=== PATIENT | male | born 1940 | race Caucasian/White ===

== ENCOUNTER 2020-01-03 23:33 | Emergency (ER) | payer MEDICARE, BC ==
[2020-01-03] MEDS ORDERED: Acetaminophen/HYDROcodone 325-10 MG Tab PO ONE (23:34)
[2020-01-03] MEDS ORDERED: Metoclopramide 10 MG/2 ML SDV IVPUSH ONE (23:53)
--- NOTE | 2020-01-03 23:57 | EDM.PDOC ---
ED HPI GENERAL MEDICAL PROBLEM - General Chief Complaint: Abdominal Pain Stated Complaint: AMBULANCE Time Seen by Provider: 01/03/20 23:54 Source of Information: Reports: Patient History Limitations: Reports: No Limitations - History of Present Illness INITIAL COMMENTS - FREE TEXT/NARRATIVE: onset low abd pain after eating some pizza at 6pm, no V/D but nauseous then ate chips and flowers juice at 9pm and felt worse. has been having BM, denies dysU, denies prior h/o. sharp pain constant. Abdomen Pain Score (Numeric/FACES): 8 - Related Data Allergies Allergy/AdvReac Type Severity Reaction Status Date / Time wool Allergy Other Verified 01/03/20 23:37 Home Meds: Home Meds Aspirin [Adult Low Dose Aspirin EC] 81 mg PO DAILY 01/04/20 [History] Omeprazole 20 mg PO DAILY 01/04/20 [History] atenoloL [Atenolol] 50 mg PO DAILY 01/04/20 [History] gemfibroziL [Gemfibrozil] 600 mg PO BID 01/04/20 [History] lisinopriL [Lisinopril] 2.5 mg PO DAILY 01/04/20 [History] traMADol [Ultram] 50 mg PO ASDIRECTED PRN 01/04/20 [History] Past Medical History HEENT History: Reports: Impaired Vision Cardiovascular History: Reports: Hypertension Respiratory History: Reports: Other (See Below) Other Respiratory History: reports chronic sinus drainage Gastrointestinal History: Reports: Hiatal Hernia Genitourinary History: Reports: Other (See Below) Other Genitourinary History: Stage 3 Kidney Disease Endocrine/Metabolic History: Reports: Diabetes, Type II Social & Family History - Tobacco Use Smoking Status *Q: Unknown Ever Smoked - Caffeine Use Caffeine Use: Reports: None - Recreational Drug Use Recreational Drug Use: No ED ROS GENERAL - Review of Systems Review Of Systems: Comprehensive ROS is negative, except as noted in HPI. ED EXAM, GI/ABD - Physical Exam Exam: See Below Exam Limited By: No Limitations General Appearance: Alert, WD/WN, Mild Distress, Moderate Distress, Other. No: Active Emesis (discomfort) Ears: Hearing Grossly Normal Throat/Mouth: Normal Voice, No Airway Compromise Head: Atraumatic Respiratory/Chest: No Respiratory Distress Cardiovascular: Regular Rate, Rhythm GI/Abdominal Exam: Guarding, Tender, Other (low abd, BS hyper). No: Rigid, Rebound Neurological: Alert, Oriented, Normal Cognition, No Motor/Sensory Deficits Psychiatric: Tearful Skin Exam: Warm, Dry, Normal Color Lymphatic: No Adenopathy Course - Vital Signs Last Recorded V/S: Last Vital Signs Temp 35.9 C L 01/03/20 23:38 Pulse 76 01/03/20 23:38 Resp 20 01/03/20 23:38 BP 166/94 H 01/03/20 23:38 Pulse Ox 97 01/03/20 23:38 - Orders/Labs/Meds Labs: Laboratory Tests 01/03/20 01/03/20 01/03/20 Range/Units 23:55 23:55 23:55 WBC 14.1 H (5.0-10.0) 10^3/uL RBC 5.66 (4.6-6.2) 10^6/uL Hgb 16.3 (14.0-18.0) g/dL Hct 49.6 (40.0-54.0) % MCV 87.6 (80-100) fL MCH 28.8 (27.0-34.0) pg MCHC 32.9 L (33.0-35.0) g/dL Plt Count 190 (150-450) 10^3/uL Neut % (Auto) 82.3 H (42.2-75.2) % Lymph % (Auto) 12.1 L (20.5-50.1) % [place] % (Auto) 4.7 (2-8) % Eos % (Auto) 0.8 L (1.0-3.0) % Baso % (Auto) 0.1 (0.0-1.0) % Sodium 143 (136-145) mmol/L Potassium 4.3 (3.5-5.1) mmol/L Chloride 106 (98-107) mmol/L Carbon Dioxide 23 (21-32) mmol/L Anion Gap 18.3 H (7-13) mEq/L BUN 28 H (7-18) mg/dL Creatinine 1.90 H (0.70-1.30) mg/dL Est Cr Clr Drug Dosing 30.44 mL/min Estimated GFR (MDRD) 35 BUN/Creatinine Ratio 14.7 (No establ ref range) Glucose 154 H (74-99) mg/dL Lactic Acid 1.5 (0.4-2.0) mmol/L Calcium 9.5 (8.5-10.1) mg/dL Total Bilirubin 0.3 (0.2-1.0) mg/dL AST 20 (15-37) U/L ALT 29 (16-63) U/L Alkaline Phosphatase 96 (46-116) U/L Total Protein 7.9 (6.4-8.2) g/dL Albumin 4.4 (3.4-5.0) g/dL Globulin 3.5 Albumin/Globulin Ratio 1.3 Amylase 79 (25-115) U/L Lipase 263 (73-393) U/L Meds: Medications Discontinued Medications Generic Name Dose Route Start Last Admin Trade Name Becca PRN Reason Stop Dose Admin Fentanyl 50 mcg 01/04/20 00:34 01/04/20 00:57 Sublimaze IVPUSH 01/04/20 00:35 50 mcg ONETIME ONE Administration Sodium Chloride 1,000 mls @ 999 mls/hr 01/04/20 01:40 01/04/20 01:54 Normal Saline IV 01/04/20 02:40 999 mls/hr .BOLUS ONE Administration Ketorolac Tromethamine 30 mg 01/04/20 01:40 01/04/20 01:55 Toradol IVPUSH 01/04/20 01:41 30 mg ONETIME ONE Administration Metoclopramide HCl 10 mg 01/03/20 23:53 01/04/20 00:02 Reglan IVPUSH 01/03/20 23:54 10 mg ONETIME ONE Administration Tamsulosin HCl 0.4 mg 01/04/20 02:27 Flomax PO 01/04/20 02:28 ONETIME ONE - Re-Assessments/Exams Free Text/Narrative Re-Assessment/Exam: 01/04/20 02:55 results discussed with pt who is pain free presently. Departure - Departure Time of Disposition: 02:56 Disposition: Home, Self-Care 01 Condition: Good Clinical Impression: Renal colic on left side, Kidney stone on left side Cholelithiases Qualifiers: Cholelithiasis location: gallbladder Cholecystitis presence: without cholecystitis Biliary obstruction: without biliary obstruction Qualified Code(s): K80.20 - Calculus of gallbladder without cholecystitis without obstruction - Discharge Information Instructions: Kidney Stones, [id number] Referrals: Umair Santiago MD [Primary Care Provider] - Forms: ED Department Discharge Additional Instructions: 1) drink lots of liquids 2) recheck if problem returns rx given; vicodin 5/325mg tid prn x 12 Sepsis Event Note (ED) - Evaluation Sepsis Screening Result: No Definite Risk - Focused Exam Vital Signs: Vital Signs Temp Pulse Resp BP Pulse Ox 01/03/20 23:38 35.9 C L 76 20 166/94 H 97
[2020-01-04 00:22] LABS: ANION GAP 18.3 mEq/L (7-13)
[2020-01-04] MEDS ORDERED: fentaNYL 100 MCG/2 ML SDV IVPUSH ONE (00:34)
--- NOTE | 2020-01-04 01:27 | CR ---
PROCEDURE INFORMATION: Exam: XR Chest, 1 View Exam date and time: 01/04/2020 1:12 AM Age: 79 years old Clinical indication: Chest pain TECHNIQUE: Imaging protocol: XR of the chest Views: 1 view. COMPARISON: No relevant prior studies available. FINDINGS: Lungs: Unremarkable. No consolidation. Pleural space: Unremarkable. No pleural effusion. No pneumothorax. Heart/Mediastinum: Unremarkable. No cardiomegaly. Bones/joints: Unremarkable. IMPRESSION: No acute findings.
--- NOTE | 2020-01-04 01:33 | CT ---
PROCEDURE INFORMATION: Exam: CT Abdomen And Pelvis Without Contrast Exam date and time: 01/04/2020 1:08 AM Age: 79 years old Clinical indication: Abdominal pain; Additional info: Low abd pain wbc 14,300 TECHNIQUE: Imaging protocol: Computed tomography of the abdomen and pelvis without contrast. Radiation optimization: All CT scans at this facility use at least one of these dose optimization techniques: automated exposure control; mA and/or kV adjustment per patient size (includes targeted exams where dose is matched to clinical indication); or iterative reconstruction. COMPARISON: No relevant prior studies available. FINDINGS: Liver: Diffuse fatty infiltration of the liver. Gallbladder and bile ducts: Gallstones in the gallbladder lumen without acute cholecystitis. Pancreas: Normal. No ductal dilation. Spleen: Normal. No splenomegaly. Adrenals: Normal. No mass. Kidneys and ureters: 3 mm x 3 mm stone at the left ureterovesicular junction. It causes moderate left hydronephrosis and left perinephric stranding, as well as stranding adjacent to the left ureter. Simple cyst arising from the lower pole of the right kidney measures 1.8 x 1.5 cm. Stomach and bowel: Unremarkable. No obstruction. No mucosal thickening. Appendix: No evidence of appendicitis. Intraperitoneal space: Unremarkable. No free air. No significant fluid collection. Vasculature: Unremarkable. No abdominal aortic aneurysm. Lymph nodes: Unremarkable. No enlarged lymph nodes. Bladder: Unremarkable as visualized. Reproductive: Prostate enlargement. Bones/joints: Multilevel changes of degenerative disc disease in the lumbar spine. No central canal stenosis. Soft tissues: Unremarkable. IMPRESSION: 1. 3 mm stone in the distal left ureter causing moderate left hydronephrosis and perinephric/periureteral stranding. 2. Gallstones in the gallbladder lumen without acute cholecystitis. COMMENTS: Consistent with the [employer]'s Incidental Findings Committee white paper (J Am Perla Radiol 2018): Any incidental renal lesion less than 1.0 cm or classified as too small to characterize, or any incidental cystic renal lesion characterized as simple-appearing, is likely benign. No follow-up imaging is recommended for these lesions per consensus recommendations based on imaging criteria.
[2020-01-04] MEDS ORDERED: Sodium Chloride 0.9% 1,000 ML IV ONE (01:40)
[2020-01-04] MEDS ORDERED: Ketorolac 30 MG/ML SDV IVPUSH ONE (01:40)
[2020-01-04] MEDS ORDERED: Ketorolac 30 MG/ML SDV ONE (01:51)
[2020-01-04] MEDS ORDERED: Tamsulosin 0.4 MG Cap.ER PO ONE (02:27)
[2020-01-04] MEDS ORDERED: Acetaminophen/HYDROcodone 325-10 MG Tab ONE (02:56)
== END 2020-01-04 03:04 | disposition home or self-care (01) ==
LOC: DL.ED 23:33
DX: K80.20 Calculus of gallbladder without cholecystitis without obstruction (principal); N13.2 Hydronephrosis with renal and ureteral calculous obstruction; I12.9 Hypertensive chronic kidney disease with stage 1 through stage 4 chronic kidney disease, or unspecified chronic kidney disease; N18.3 Chronic kidney disease, stage 3 (moderate); E11.22 Type 2 diabetes mellitus with diabetic chronic kidney disease; Z91.048 Other nonmedicinal substance allergy status; Z79.82 Long term (current) use of aspirin; Z79.899 Other long term (current) drug therapy
CPT/HCPCS: 36415; 71045; 74176; 80053; 82150; 83605; 83690; 85025; 96361; 96374; 96375; 99284; J1885; J2765; J3010; J7030; A9270-GY

== ENCOUNTER 2020-01-05 19:46 | Emergency (ER) | payer MEDICARE, BC ==
[2020-01-05] MEDS ORDERED: Ketorolac 30 MG/ML SDV IVPUSH ONE (19:51)
[2020-01-05] MEDS ORDERED: Ondansetron 4 MG/2 ML SDV IVPUSH ONE (19:51)
[2020-01-05] MEDS ORDERED: Sodium Chloride 0.9% 1,000 ML IV ONE (19:51)
--- NOTE | 2020-01-05 19:59 | EDM.PDOC ---
ED HPI GENERAL MEDICAL PROBLEM - General Stated Complaint: STOMACH PAIN,KINDEY STONE, CAN'T EAT OR SLEEP Time Seen by Provider: 01/05/20 19:56 Source of Information: Reports: Patient History Limitations: Reports: No Limitations - History of Present Illness INITIAL COMMENTS - FREE TEXT/NARRATIVE: was here 2 days ago for same, got better and d/c with Rx, was ok at first but then got worse and Rx not heping called PMD and got tramadol which didn't help at all. so came here Left Flank Pain Score (Numeric/FACES): 8 - Related Data Allergies Allergy/AdvReac Type Severity Reaction Status Date / Time wool Allergy Other Verified 01/05/20 20:17 Home Meds: Home Meds Aspirin [Adult Low Dose Aspirin EC] 81 mg PO DAILY 01/04/20 [History] Omeprazole 20 mg PO DAILY 01/04/20 [History] atenoloL [Atenolol] 50 mg PO DAILY 01/04/20 [History] gemfibroziL [Gemfibrozil] 600 mg PO BID 01/04/20 [History] lisinopriL [Lisinopril] 2.5 mg PO DAILY 01/04/20 [History] traMADol [Ultram] 50 mg PO ASDIRECTED PRN 01/04/20 [History] Past Medical History HEENT History: Reports: Impaired Vision Cardiovascular History: Reports: Hypertension Respiratory History: Reports: Other (See Below) Other Respiratory History: reports chronic sinus drainage Gastrointestinal History: Reports: Hiatal Hernia Genitourinary History: Reports: Other (See Below) Other Genitourinary History: Stage 3 Kidney Disease Endocrine/Metabolic History: Reports: Diabetes, Type II Social & Family History - Caffeine Use Caffeine Use: Reports: None ED ROS GENERAL - Review of Systems Review Of Systems: Comprehensive ROS is negative, except as noted in HPI. ED EXAM, RENAL/ - Physical Exam Exam: See Below Exam Limited By: No Limitations General Appearance: Alert, WD/WN, Mild Distress, Moderate Distress, Other ([place]). No: Active Emesis Ears: Hearing Grossly Normal Throat/Mouth: Normal Voice, No Airway Compromise Head: Atraumatic Neck: Non-Tender, Full Range of Motion Respiratory/Chest: No Respiratory Distress Cardiovascular: Regular Rate, Rhythm GI/Abdominal: Soft, Tender, Other (suprapub discomfort). No: Distended, Guarding, Rigid, Rebound Neurological: Alert, Oriented, Normal Cognition, Normal Gait, No Motor/Sensory Deficits Psychiatric: Flat Affect, Tearful Skin Exam: Warm, Dry, Normal Color Lymphatic: No Adenopathy Course - Vital Signs Last Recorded V/S: Last Vital Signs Temp 35.5 C L 01/05/20 20:14 Pulse 84 01/05/20 20:14 Resp 12 01/05/20 20:14 BP 175/82 H 01/05/20 20:14 Pulse Ox 95 01/05/20 20:14 - Orders/Labs/Meds Labs: Laboratory Tests 01/05/20 01/05/20 01/05/20 Range/Units 20:00 20:00 20:00 WBC 17.4 H (5.0-10.0) 10^3/uL RBC 5.29 (4.6-6.2) 10^6/uL Hgb 15.7 (14.0-18.0) g/dL Hct 46.8 (40.0-54.0) % MCV 88.5 (80-100) fL MCH 29.7 (27.0-34.0) pg MCHC 33.5 (33.0-35.0) g/dL Plt Count 176 (150-450) 10^3/uL Neut % (Auto) 82.7 H (42.2-75.2) % Lymph % (Auto) 7.8 L (20.5-50.1) % [place] % (Auto) 9.2 H (2-8) % Eos % (Auto) 0.2 L (1.0-3.0) % Baso % (Auto) 0.1 (0.0-1.0) % Sodium 137 (136-145) mmol/L Potassium 4.7 (3.5-5.1) mmol/L Chloride 103 (98-107) mmol/L Carbon Dioxide 22 (21-32) mmol/L Anion Gap 16.7 H (7-13) mEq/L BUN 33 H (7-18) mg/dL Creatinine 2.44 H (0.70-1.30) mg/dL Est Cr Clr Drug Dosing 23.70 mL/min Estimated GFR (MDRD) 26 BUN/Creatinine Ratio 13.5 (No establ ref range) Glucose 122 H (74-99) mg/dL Lactic Acid 0.6 (0.4-2.0) mmol/L Calcium 8.6 (8.5-10.1) mg/dL Total Bilirubin 0.8 (0.2-1.0) mg/dL AST 19 (15-37) U/L ALT 23 (16-63) U/L Alkaline Phosphatase 84 (46-116) U/L Total Protein 7.6 (6.4-8.2) g/dL Albumin 3.8 (3.4-5.0) g/dL Globulin 3.8 Albumin/Globulin Ratio 1.0 Amylase (25-115) U/L Lipase (73-393) U/L Urine Color (YELLOW) Urine Appearance (CLEAR) Urine pH (5.0-9.0) Ur Specific [place] (1.005-1.030) Urine Protein (NEGATIVE) Urine Glucose (UA) (NEGATIVE) Urine Ketones (NEGATIVE) Urine Occult Blood (NEGATIVE) Urine Nitrite (NEGATIVE) Urine Bilirubin (NEGATIVE) Urine Urobilinogen (0.2-1.0) mg/dL Ur Leukocyte Esterase (NEGATIVE) Urine RBC /HPF Urine WBC (0-5/HPF) /HPF Ur Epithelial Cells (NOT SEEN) /HPF Urine Bacteria (0-FEW/HPF) /HPF 01/05/20 01/05/20 Range/Units 20:00 20:45 WBC (5.0-10.0) 10^3/uL RBC (4.6-6.2) 10^6/uL Hgb (14.0-18.0) g/dL Hct (40.0-54.0) % MCV (80-100) fL MCH (27.0-34.0) pg MCHC (33.0-35.0) g/dL Plt Count (150-450) 10^3/uL Neut % (Auto) (42.2-75.2) % Lymph % (Auto) (20.5-50.1) % [place] % (Auto) (2-8) % Eos % (Auto) (1.0-3.0) % Baso % (Auto) (0.0-1.0) % Sodium (136-145) mmol/L Potassium (3.5-5.1) mmol/L Chloride (98-107) mmol/L Carbon Dioxide (21-32) mmol/L Anion Gap (7-13) mEq/L BUN (7-18) mg/dL Creatinine (0.70-1.30) mg/dL Est Cr Clr Drug Dosing mL/min Estimated GFR (MDRD) BUN/Creatinine Ratio (No establ ref range) Glucose (74-99) mg/dL Lactic Acid (0.4-2.0) mmol/L Calcium (8.5-10.1) mg/dL Total Bilirubin (0.2-1.0) mg/dL AST (15-37) U/L ALT (16-63) U/L Alkaline Phosphatase (46-116) U/L Total Protein (6.4-8.2) g/dL Albumin (3.4-5.0) g/dL Globulin Albumin/Globulin Ratio Amylase 46 (25-115) U/L Lipase 145 (73-393) U/L Urine Color Yellow (YELLOW) Urine Appearance Clear (CLEAR) Urine pH 6.0 (5.0-9.0) Ur Specific [place] 1.025 (1.005-1.030) Urine Protein 30 H (NEGATIVE) Urine Glucose (UA) Negative (NEGATIVE) Urine Ketones Negative (NEGATIVE) Urine Occult Blood Trace-intact H (NEGATIVE) Urine Nitrite Negative (NEGATIVE) Urine Bilirubin Negative (NEGATIVE) Urine Urobilinogen 0.2 (0.2-1.0) mg/dL Ur Leukocyte Esterase Negative (NEGATIVE) Urine RBC 0-5 /HPF Urine WBC 0-5 (0-5/HPF) /HPF Ur Epithelial Cells Rare (NOT SEEN) /HPF Urine Bacteria Rare (0-FEW/HPF) /HPF Meds: Medications Discontinued Medications Generic Name Dose Route Start Last Admin Trade Name Freq PRN Reason Stop Dose Admin Sodium Chloride 1,000 mls @ 999 mls/hr 01/05/20 19:51 01/05/20 20:07 Normal Saline IV 01/05/20 20:51 999 mls/hr .BOLUS ONE Administration Ketorolac Tromethamine 30 mg 01/05/20 19:51 01/05/20 20:06 Toradol IVPUSH 01/05/20 19:52 30 mg ONETIME ONE Administration Ondansetron HCl 4 mg 01/05/20 19:51 01/05/20 20:06 Zofran IVPUSH 08/21/20 19:52 4 mg ONETIME ONE Administration - Re-Assessments/Exams Free Text/Narrative Re-Assessment/Exam: 01/05/20 21:[address] Perez @ who kindly accepted pt. discussed with [facility] due to worsening RF refer to [facility] Neph refer to Dr Daly Urol request hospitalist admit myrna fu in AM Departure - Departure Time of Disposition: 21:54 Disposition: DC/Tfer to [facility] 02 Condition: Good Clinical Impression: Kidney stone on left side, Hydronephrosis due to obstruction of ureter Renal failure Qualifiers: Renal failure chronicity: acute on chronic Acute renal failure type: unspecified Chronic kidney disease stage: stage 3 (moderate) Qualified Code(s): N17.9 - Acute kidney failure, unspecified; N18.3 - Chronic kidney disease, stage 3 (moderate) - Discharge Information Forms: Interfacility Transfer [facility] Sepsis Event Note (ED) - Focused Exam Vital Signs: Vital Signs Temp Pulse Resp BP Pulse Ox 01/05/20 20:14 35.5 C L 84 12 175/82 H 95
[2020-01-05 20:24] LABS: ANION GAP 16.7 mEq/L (7-13)
== END 2020-01-05 22:47 ==
LOC: DL.ED 19:46
DX: N13.1 Hydronephrosis with ureteral stricture, not elsewhere classified (principal); N17.9 Acute kidney failure, unspecified; I12.9 Hypertensive chronic kidney disease with stage 1 through stage 4 chronic kidney disease, or unspecified chronic kidney disease; E11.22 Type 2 diabetes mellitus with diabetic chronic kidney disease; N18.3 Chronic kidney disease, stage 3 (moderate); Z79.82 Long term (current) use of aspirin; Z79.899 Other long term (current) drug therapy
CPT/HCPCS: 36415; 80053; 81001; 82150; 83605; 83690; 85025; 96361; 96374; 96375; 99285; J1885; J2405; J7030

== ENCOUNTER 2020-01-14 20:01 | Emergency (ER) | payer MEDICARE, BC ==
--- NOTE | 2020-01-14 20:31 | EDM.PDOC ---
ED HPI GENERAL MEDICAL PROBLEM - General Chief Complaint: Genitourinary Problem Stated Complaint: UTI, PAINFUL KIDNEY AND BLADDER PER PT Time Seen by Provider: 01/14/20 20:29 Source of Information: Reports: Patient History Limitations: Reports: No Limitations - History of Present Illness INITIAL COMMENTS - FREE TEXT/NARRATIVE: onset left flank burning sensation today. had uro stent removed few days ago for K-stones. been fine till now. 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 Left Flank Pain Score (Numeric/FACES): 7 - Related Data Allergies Allergy/AdvReac Type Severity Reaction Status Date / Time wool Allergy Other Verified 01/14/20 20:21 Home Meds: Home Meds Aspirin [Adult Low Dose Aspirin EC] 81 mg PO DAILY 01/04/20 [History] Omeprazole 20 mg PO DAILY 01/04/20 [History] atenoloL [Atenolol] 50 mg PO DAILY 01/04/20 [History] gemfibroziL [Gemfibrozil] 600 mg PO BID 01/04/20 [History] lisinopriL [Lisinopril] 2.5 mg PO DAILY 01/04/20 [History] traMADol [Ultram] 50 mg PO ASDIRECTED PRN 01/04/20 [History] Past Medical History HEENT History: Reports: Impaired Vision Cardiovascular History: Reports: Hypertension Respiratory History: Reports: Other (See Below) Other Respiratory History: reports chronic sinus drainage Gastrointestinal History: Reports: Hiatal Hernia Genitourinary History: Reports: Renal Calculus, Other (See Below) Other Genitourinary History: Stage 3 Kidney Disease. post removal of stent Endocrine/Metabolic History: Reports: Diabetes, Type II - Past Surgical History Male Surgical History: Reports: Kidney Stone Extraction Social & Family History - Tobacco Use Smoking Status *Q: Never Smoker Second Hand Smoke Exposure: No - Caffeine Use Caffeine Use: Reports: Tea - Recreational Drug Use Recreational Drug Use: No ED ROS GENERAL - Review of Systems Review Of Systems: Comprehensive ROS is negative, except as noted in HPI. ED EXAM, RENAL/ - Physical Exam Exam: See Below Exam Limited By: No Limitations General Appearance: Alert, WD/WN, Mild Distress, Other (discomfort). No: Active Emesis Ears: Hearing Grossly Normal Throat/Mouth: Normal Voice, No Airway Compromise Head: Atraumatic Neck: Non-Tender, Full Range of Motion Respiratory/Chest: No Respiratory Distress Cardiovascular: Regular Rate, Rhythm GI/Abdominal: Soft, Non-Tender Back Exam: CVA Tenderness (L) Neurological: Alert, Oriented, Normal Cognition, Normal Gait, No Motor/Sensory Deficits Psychiatric: Normal Affect, Normal Mood Skin Exam: Warm, Dry, Normal Color Lymphatic: No Adenopathy Course - Vital Signs Last Recorded V/S: Last Vital Signs Temp 36.2 C 01/14/20 20:12 Pulse 73 01/14/20 20:12 Resp 19 01/14/20 20:12 BP 167/98 H 01/14/20 20:12 Pulse Ox 98 01/14/20 20:12 - Orders/Labs/Meds Orders: Active Orders 24 hr Category Date Time Status CULTURE BLOOD [BC] Stat Lab 01/14/20 20:38 Results Labs: Laboratory Tests 01/14/20 01/14/20 01/14/20 Range/Units 20:12 20:38 20:38 WBC 11.5 H (5.0-10.0) 10^3/uL RBC 5.23 (4.6-6.2) 10^6/uL Hgb 15.4 (14.0-18.0) g/dL Hct 45.7 (40.0-54.0) % MCV 87.4 (80-100) fL MCH 29.4 (27.0-34.0) pg MCHC 33.7 (33.0-35.0) g/dL Plt Count 297 D (150-450) 10^3/uL Neut % (Auto) 80.4 H (42.2-75.2) % Lymph % (Auto) 10.2 L (20.5-50.1) % [place] % (Auto) 7.1 (2-8) % Eos % (Auto) 2.1 (1.0-3.0) % Baso % (Auto) 0.2 (0.0-1.0) % Sodium 137 (136-145) mmol/L Potassium 4.1 (3.5-5.1) mmol/L Chloride 102 (98-107) mmol/L Carbon Dioxide 23 (21-32) mmol/L Anion Gap 16.1 H (7-13) mEq/L BUN 22 H (7-18) mg/dL Creatinine 2.03 H (0.70-1.30) mg/dL Est Cr Clr Drug Dosing 28.49 mL/min Estimated GFR (MDRD) 32 BUN/Creatinine Ratio 10.8 (No establ ref range) Glucose 172 H (74-99) mg/dL Lactic Acid (0.4-2.0) mmol/L Calcium 9.4 (8.5-10.1) mg/dL Total Bilirubin 0.4 (0.2-1.0) mg/dL AST 15 (15-37) U/L ALT 21 (16-63) U/L Alkaline Phosphatase 115 (46-116) U/L Total Protein 8.0 (6.4-8.2) g/dL Albumin 3.7 (3.4-5.0) g/dL Globulin 4.3 Albumin/Globulin Ratio 0.9 Urine Color Yellow (YELLOW) Urine Appearance Slightly cloudy (CLEAR) Urine pH 5.5 (5.0-9.0) Ur Specific [place] >= 1.030 (1.005-1.030) Urine Protein >=300 H (NEGATIVE) Urine Glucose (UA) Negative (NEGATIVE) Urine Ketones Negative (NEGATIVE) Urine Occult Blood Moderate H (NEGATIVE) Urine Nitrite Negative (NEGATIVE) Urine Bilirubin Negative (NEGATIVE) Urine Urobilinogen 0.2 (0.2-1.0) mg/dL Ur Leukocyte Esterase Negative (NEGATIVE) Urine RBC 50-75 H /HPF Urine WBC 5-10 H (0-5/HPF) /HPF Ur Epithelial Cells Few (NOT SEEN) /HPF Amorphous Sediment Rare (NOT SEEN) /HPF Urine Bacteria Few (0-FEW/HPF) /HPF Fine Granular Casts Rare H (NOT SEEN) /LPF Urine Mucus Few H (NOT SEEN) /LPF 08/30/20 Range/Units 20:38 WBC (5.0-10.0) 10^3/uL RBC (4.6-6.2) 10^6/uL Hgb (14.0-18.0) g/dL Hct (40.0-54.0) % MCV (80-100) fL MCH (27.0-34.0) pg MCHC (33.0-35.0) g/dL Plt Count (150-450) 10^3/uL Neut % (Auto) (42.2-75.2) % Lymph % (Auto) (20.5-50.1) % [place] % (Auto) (2-8) % Eos % (Auto) (1.0-3.0) % Baso % (Auto) (0.0-1.0) % Sodium (136-145) mmol/L Potassium (3.5-5.1) mmol/L Chloride (98-107) mmol/L Carbon Dioxide (21-32) mmol/L Anion Gap (7-13) mEq/L BUN (7-18) mg/dL Creatinine (0.70-1.30) mg/dL Est Cr Clr Drug Dosing mL/min Estimated GFR (MDRD) BUN/Creatinine Ratio (No establ ref range) Glucose (74-99) mg/dL Lactic Acid 0.8 (0.4-2.0) mmol/L Calcium (8.5-10.1) mg/dL Total Bilirubin (0.2-1.0) mg/dL AST (15-37) U/L ALT (16-63) U/L Alkaline Phosphatase (46-116) U/L Total Protein (6.4-8.2) g/dL Albumin (3.4-5.0) g/dL Globulin Albumin/Globulin Ratio Urine Color (YELLOW) Urine Appearance (CLEAR) Urine pH (5.0-9.0) Ur Specific [place] (1.005-1.030) Urine Protein (NEGATIVE) Urine Glucose (UA) (NEGATIVE) Urine Ketones (NEGATIVE) Urine Occult Blood (NEGATIVE) Urine Nitrite (NEGATIVE) Urine Bilirubin (NEGATIVE) Urine Urobilinogen (0.2-1.0) mg/dL Ur Leukocyte Esterase (NEGATIVE) Urine RBC /HPF Urine WBC (0-5/HPF) /HPF Ur Epithelial Cells (NOT SEEN) /HPF Amorphous Sediment (NOT SEEN) /HPF Urine Bacteria (0-FEW/HPF) /HPF Fine Granular Casts (NOT SEEN) /LPF Urine Mucus (NOT SEEN) /LPF Meds: Medications Discontinued Medications Generic Name Dose Route Start Last Admin Trade Name Freq PRN Reason Stop Dose Admin Phenazopyridine HCl 95 mg 01/14/20 22:30 Urinary Pain Relief PO 01/14/20 22:31 ONETIME ONE - Re-Assessments/Exams Free Text/Narrative Re-Assessment/Exam: 01/14/20 21:31 results discussed with pt and rescan for stones. 01/14/20 22:32 results discussed with pt who states left flank pain almost gone but urination still [place] abit. Departure - Departure Time of Disposition: 22:32 Disposition: Home, Self-Care 01 Condition: Good Clinical Impression: Urethritis - Discharge Information Forms: ED Department Discharge Additional Instructions: 1) drink lots of liquids 2) follow up at clinic rx given; pyridium 100mg tid prn x 12 Sepsis Event Note (ED) - Evaluation Sepsis Screening Result: No Definite Risk - Focused Exam Vital Signs: Vital Signs Temp Pulse Resp BP Pulse Ox 01/14/20 20:12 36.2 C 73 19 167/98 H 98 - My Orders Last 24 Hours: My Active Orders 01/14/20 20:38 CULTURE BLOOD [BC] Stat - Assessment/Plan Last 24 Hours: My Active Orders 01/14/20 20:38 CULTURE BLOOD [BC] Stat
[2020-01-14 21:11] LABS: ANION GAP 16.1 mEq/L (7-13)
--- NOTE | 2020-01-14 22:13 | CT ---
PROCEDURE INFORMATION: Exam: CT Abdomen And Pelvis Without Contrast Exam date and time: 01/14/2020 9:47 PM Age: 79 years old Clinical indication: Other: Left sided pain--had previous stone removed last week; Prior surgery; Surgery date: 3-7 days post-operative; Surgery type: Stone removal; Additional info: K stone TECHNIQUE: Imaging protocol: Computed tomography of the abdomen and pelvis without contrast. Radiation optimization: All CT scans at this facility use at least one of these dose optimization techniques: automated exposure control; mA and/or kV adjustment per patient size (includes targeted exams where dose is matched to clinical indication); or iterative reconstruction. COMPARISON: CT Abdomen Pelvis wo Cont 01/04/2020 1:08 AM FINDINGS: Liver: The liver is normal in architecture, without suspicious abnormality. Gallbladder and bile ducts: Cholelithiasis. No stranding of pericholecystic fat, gas in or thickening of the gallbladder wall, hydrops, mass, or biliary ductal dilatation. Pancreas: The pancreatic parenchyma is normal in bulk and sharply marginated. Duct is not dilated. No masses, or abnormal fluid collections. Couple of incidental punctate parenchymal calcifications, possibly from old granulomatous disease. Spleen: Spleen is normal in size. No mass or fluid collection. Adrenals: There are no adrenal masses. Kidneys and ureters: Left perinephric stranding and hydroureteronephrosis similar to the comparison study. No ureteral calculi. Unremarkable right kidney. Stomach and bowel: There is a small hiatal hernia.There is elevation of right hemidiaphragm. There are no dilated or thickened small bowel loops. Gas and stool are present within colon to the rectum. There are multiple colonic diverticula, concentrated primarily distally. Appendix: There is no evidence for appendicitis. Intraperitoneal space: There is no pneumoperitoneum, abscess, ascites or mass. Vasculature: There are atherosclerotic calcifications inclusive of the coronary arteries. There is atherosclerotic calcification of the aorto-iliac tree. There is no abdominal aortic aneurysm. Lymph nodes: No enlarged lymph nodes. Bladder: Bladder contains posterior high density consistent with blood clot. There is a small diverticulum projecting off left side of the urinary bladder. Reproductive: Mild prostatomegaly. Bones/joints: There is age-appropriate spondylosis of the spine. There are no suspicious lytic or osteosclerotic lesions. There are no vertebral compression fractures. Soft tissues: There is a fat-containing umbilical hernia. IMPRESSION: 1. Left perinephric stranding and hydroureteronephrosis similar to the comparison study. The stone formally seen at left ureterovesicular junction is no longer present. 2. Blood within the urinary bladder.
[2020-01-14] MEDS ORDERED: Phenazopyridine 95 MG Tab PO ONE (22:30)
== END 2020-01-14 22:39 | disposition home or self-care (01) ==
LOC: DL.ED 20:01
DX: N34.2 Other urethritis (principal); I12.9 Hypertensive chronic kidney disease with stage 1 through stage 4 chronic kidney disease, or unspecified chronic kidney disease; N18.3 Chronic kidney disease, stage 3 (moderate); Z88.5 Allergy status to narcotic agent; Z91.048 Other nonmedicinal substance allergy status; E11.22 Type 2 diabetes mellitus with diabetic chronic kidney disease; Z79.82 Long term (current) use of aspirin; Z79.899 Other long term (current) drug therapy
CPT/HCPCS: 36415; 74176; 80053; 81001; 83605; 85025; 87040; 99284; A9270

== ENCOUNTER 2020-02-04 16:29 | Emergency (ER) | payer MEDICARE, BC ==
[2020-02-04] MEDS ORDERED: Sodium Chloride 0.9% 10 ML Syringe FLUSH PRN (16:45)
--- NOTE | 2020-02-04 17:10 | CR ---
PROCEDURE INFORMATION: Exam: XR Chest, 1 View Exam date and time: 02/04/2020 4:59 PM Age: 79 years old Clinical indication: Other: Chest pain TECHNIQUE: Imaging protocol: XR of the chest Views: 1 view. COMPARISON: CR Chest 1V Frontal 01/04/2020 1:12 AM FINDINGS: Lungs: Unremarkable. No consolidation. Pleural space: Unremarkable. No pleural effusion. No pneumothorax. Heart/Mediastinum: Unremarkable. No cardiomegaly. Bones/joints: Unremarkable. IMPRESSION: No acute findings.
[2020-02-04 17:11] LABS: ANION GAP 12.8 mEq/L (7-13); CHLORIDE,CL 105 mmol/L (98-107); SODIUM,NA 142 mmol/L (136-145)
[2020-02-04] MEDS ORDERED: GI Cocktail Oral Solution 30 ML PO ONE (17:23)
--- NOTE | 2020-02-04 18:05 | EDM.PDOC ---
Scribed by Lara Leone 02/04/20 1809 for Jacqueline Ureña MD ED HPI GENERAL MEDICAL PROBLEM - General Chief Complaint: Chest Pain Stated Complaint: [id number] PAIN IN SHOULDERS AND CHEST AREA Time Seen by Provider: 02/04/20 16:45 Source of Information: Reports: Patient, RN, RN Notes Reviewed History Limitations: Reports: No Limitations - History of Present Illness INITIAL COMMENTS - FREE TEXT/NARRATIVE: Patient presents to ED stating that he came with chest pain and pain in his back between his shoulder blades. It started around 1:30 this afternoon. He has never had this pain before. No known heart problems. The pain radiates from his back into his chest into his abdomen. It is a dull ache, occasional throb. No cough, but he is a little short of breath when he wears his mask. He last ate at 1:00 p.m., when he had 2 taquitos and a pepper. He said this is not a spicy meal for him. He was at rest when it started. HE tried going outside, but he felt worse so he sat down. It has been steady, so he decided to come in for evaluation. He was in a few weeks ago for a renal stone removal. No fevers or chills, otherwise feeling well. No nausea. Onset: Today Duration: Getting Worse Location: Reports: Chest Quality: Reports: Ache Severity: Moderate Improves with: Reports: None Worsens with: Reports: None Associated Symptoms: Reports: No Other Symptoms - Related Data Allergies Allergy/AdvReac Type Severity Reaction Status Date / Time wool Allergy Other Verified 02/04/20 16:35 Home Meds: Home Meds Aspirin [Adult Low Dose Aspirin EC] 81 mg PO DAILY 01/04/20 [History] Omeprazole 20 mg PO DAILY 01/04/20 [History] atenoloL [Atenolol] 50 mg PO DAILY 01/04/20 [History] gemfibroziL [Gemfibrozil] 600 mg PO BID 01/04/20 [History] lisinopriL [Lisinopril] 2.5 mg PO DAILY 01/04/20 [History] traMADol [Ultram] 50 mg PO ASDIRECTED PRN 01/04/20 [History] Famotidine 20 mg PO DAILY PRN 02/04/20 [History] Tamsulosin HCl 0.4 mg PO DAILY 02/04/20 [History] Past Medical History HEENT History: Reports: Impaired Vision Cardiovascular History: Reports: Hypertension Respiratory History: Reports: Other (See Below) Other Respiratory History: reports chronic sinus drainage Gastrointestinal History: Reports: Hiatal Hernia Genitourinary History: Reports: Renal Calculus, Other (See Below) Other Genitourinary History: Stage 3 Kidney Disease. post removal of stent Endocrine/Metabolic History: Reports: Diabetes, Type II - Past Surgical History Male Surgical History: Reports: Kidney Stone Extraction Social & Family History - Caffeine Use Caffeine Use: Reports: Tea ED ROS GENERAL - Review of Systems Review Of Systems: Comprehensive ROS is negative, except as noted in HPI. ED EXAM, GENERAL - Physical Exam Exam: See Below Exam Limited By: No Limitations General Appearance: Alert, WD/WN, No Apparent Distress Eye Exam: Bilateral Eye: Normal Inspection Ears: Normal External Exam, Normal Canal, Hearing Grossly Normal, Normal TMs Nose: Normal Inspection, Normal Mucosa, No Blood Throat/Mouth: Normal Inspection, Normal Lips, Normal Teeth, Normal Gums, Normal Oropharynx, Normal Voice, No Airway Compromise Head: Atraumatic, Normocephalic Neck: Normal Inspection, Supple, Non-Tender, Full Range of Motion Respiratory/Chest: Normal Breath Sounds, No Accessory Muscle Use, Chest Non- Tender, Wheezing (on end expiration mild) Cardiovascular: Normal Peripheral Pulses, Regular Rate, Rhythm, No Edema, No Gallop, No JVD, No Murmur, No Rub GI/Abdominal: Normal Bowel Sounds, Soft, Non-Tender, No Organomegaly, No Distention, No Abnormal Bruit, No Mass (Male) Exam: Deferred Rectal (Males) Exam: Deferred Back Exam: Normal Inspection, Full Range of Motion, NT Extremities: Normal Inspection, Normal Range of Motion, Non-Tender, Normal Capillary Refill, No Pedal Edema Neurological: Alert, Oriented, CN II-XII Intact, Normal Cognition, Normal Gait, Normal Reflexes, No Motor/Sensory Deficits Psychiatric: Normal Affect, Normal Mood Skin Exam: Warm, Dry, Intact, Normal Color, No Rash Course - Vital Signs Last Recorded V/S: Last Vital Signs Temp 97.8 F 02/04/20 16:37 Pulse 65 02/04/20 16:37 Resp 21 H 02/04/20 16:37 BP 177/83 H 02/04/20 16:37 Pulse Ox 100 02/04/20 16:37 - Orders/Labs/Meds Orders: Active Orders 24 hr Category Date Time Status EKG 12 Lead [EKG Documentation Completion] [] STAT Care 02/04/20 16:44 Active Peripheral IV Care [RC] . DIRECTED Care 02/04/20 16:46 Active DRUG SCREEN, URINE [URCHEM] Stat Lab 02/04/20 16:45 Ordered UA RFX REBECCA AND CULT IF INDIC [URIN] Stat Lab 02/04/20 16:45 Ordered Sodium Chloride 0.9% [Saline Flush] Med 02/04/20 16:45 Active 10 ml FLUSH ASDIRECTED PRN Peripheral IV Insertion Adult [OM.PC] Stat Oth 02/04/20 16:45 Ordered Medication Orders Sodium Chloride (Saline Flush) 10 ml FLUSH ASDIRECTED PRN PRN Reason: Keep Vein Open Labs: Laboratory Tests 02/04/20 02/04/20 Range/Units 16:38 16:38 WBC 6.8 (5.0-10.0) 10^3/uL RBC 5.23 (4.6-6.2) 10^6/uL Hgb 15.3 (14.0-18.0) g/dL Hct 46.6 (40.0-54.0) % MCV 89.1 (80-100) fL MCH 29.3 (27.0-34.0) pg MCHC 32.8 L (33.0-35.0) g/dL Plt Count 201 D (150-450) 10^3/uL Neut % (Auto) 56.4 (42.2-75.2) % Lymph % (Auto) 29.9 (20.5-50.1) % [place] % (Auto) 9.6 H (2-8) % Eos % (Auto) 3.8 H (1.0-3.0) % Baso % (Auto) 0.3 (0.0-1.0) % Sodium 142 (136-145) mmol/L Potassium 4.8 (3.5-5.1) mmol/L Chloride 105 (98-107) mmol/L Carbon Dioxide 29 (21-32) mmol/L Anion Gap 12.8 (7-13) mEq/L BUN 19 H (7-18) mg/dL Creatinine 1.31 H (0.70-1.30) mg/dL Est Cr Clr Drug Dosing 44.15 mL/min Estimated GFR (MDRD) 53 BUN/Creatinine Ratio 14.5 (No establ ref range) Glucose 126 H (74-99) mg/dL Calcium 9.6 (8.5-10.1) mg/dL Total Bilirubin 0.3 (0.2-1.0) mg/dL AST 24 (15-37) U/L ALT 25 (16-63) U/L Alkaline Phosphatase 115 (46-116) U/L Troponin I < 0.017 (0.000-0.056) ng/mL B-Natriuretic Peptide 24 (0-100) pg/ml Total Protein 8.0 (6.4-8.2) g/dL Albumin 4.2 (3.4-5.0) g/dL Globulin 3.8 Albumin/Globulin Ratio 1.1 Meds: Medications Generic Name Dose Route Start Last Admin Trade Name Freq PRN Reason Stop Dose Admin Sodium Chloride 10 ml 02/04/20 16:45 Saline Flush FLUSH ASDIRECTED PRN Keep Vein Open Discontinued Medications Generic Name Dose Route Start Last Admin Trade Name Freq PRN Reason Stop Dose Admin Al Hydroxide/Mg Hydroxide 30 ml 02/04/20 17:23 02/04/20 17:34 Gi Cocktail PO 02/04/20 17:24 30 ml ONETIME ONE Administration Departure - Departure Time of Disposition: 18:02 Disposition: Home, Self-Care 01 Condition: Good Clinical Impression: GERD (gastroesophageal reflux disease) Qualifiers: Esophagitis presence: esophagitis presence not specified Qualified Code(s): K21.9 - Gastro-esophageal reflux disease without esophagitis Forms: ED Department Discharge Sepsis Event Note (ED) - Evaluation Sepsis Screening Result: No Definite Risk - Focused Exam Vital Signs: Vital Signs Temp Pulse Resp BP Pulse Ox 02/04/20 16:37 97.8 F 65 21 H 177/83 H 100 - My Orders Last 24 Hours: My Active Orders 02/04/20 16:44 EKG 12 Lead [EKG Documentation Completion] [RC] STAT 02/04/20 16:45 DRUG SCREEN, URINE [URCHEM] Stat UA RFX REBECCA AND CULT IF INDIC [URIN] Stat Sodium Chloride 0.9% [Saline Flush] 10 ml FLUSH ASDIRECTED PRN Peripheral IV Insertion Adult [OM.PC] Stat 02/04/20 16:46 Peripheral IV Care [RC] . DIRECTED - Assessment/Plan Last 24 Hours: My Active Orders 02/04/20 16:44 EKG 12 Lead [EKG Documentation Completion] [RC] STAT 02/04/20 16:45 DRUG SCREEN, URINE [URCHEM] Stat UA RFX REBECCA AND CULT IF INDIC [URIN] Stat Sodium Chloride 0.9% [Saline Flush] 10 ml FLUSH ASDIRECTED PRN Peripheral IV Insertion Adult [OM.PC] Stat 02/04/20 16:46 Peripheral IV Care [RC] . DIRECTED Assessment:: 79 yo male with acute back/chest pain that started 30 minutes after eating. Plan: reassured labs were normal GI cocktail resolved pain reviewed reasons to call/return to the ER fu with PCP in 2-3 days I have read and agree with the documentation that has been completed regarding this visit. By signing this record, I attest that the documentation was completed in my physical presence and is an accurate record of the encounter.
== END 2020-02-04 18:14 | disposition home or self-care (01) ==
LOC: DL.ED 16:29
DX: K21.9 Gastro-esophageal reflux disease without esophagitis (principal); I12.9 Hypertensive chronic kidney disease with stage 1 through stage 4 chronic kidney disease, or unspecified chronic kidney disease; E11.22 Type 2 diabetes mellitus with diabetic chronic kidney disease; N18.3 Chronic kidney disease, stage 3 (moderate); Z91.09 Other allergy status, other than to drugs and biological substances; Z79.82 Long term (current) use of aspirin; Z79.899 Other long term (current) drug therapy
CPT/HCPCS: 36415; 71045; 80053; 83880; 84484; 85025; 93005; 99285; A9270

== ENCOUNTER 2023-05-14 15:32 | Emergency (ER) | payer MEDICARE, BC | END 2023-05-14 17:04 | disposition home or self-care (01) | LOC: DL.ED 15:32 | DX: S09.90XA Unspecified injury of head, initial encounter (principal); E11.22 Type 2 diabetes mellitus with diabetic chronic kidney disease; I12.9 Hypertensive chronic kidney disease with stage 1 through stage 4 chronic kidney disease, or unspecified chronic kidney disease; N18.30 Chronic kidney disease, stage 3 unspecified; Z79.82 Long term (current) use of aspirin; Z79.899 Other long term (current) drug therapy; Z91.048 Other nonmedicinal substance allergy status; W00.0XXA Fall on same level due to ice and snow, initial encounter | CPT/HCPCS: 70450; 99283 ==

== ENCOUNTER 2024-01-23 05:14 | Emergency (ER) | payer MEDICARE, BC ==
[2024-01-23] MEDS: Ketorolac 30 MG/ML SDV IM ONE (05:57)
[2024-01-23] MEDS: Dexamethasone 4 MG/ML SDV IM ONE (05:57)
== END 2024-01-23 06:03 | disposition home or self-care (01) ==
LOC: DL.ED 05:14
DX: R07.81 Pleurodynia (principal); I10 Essential (primary) hypertension; E11.9 Type 2 diabetes mellitus without complications; Z91.048 Other nonmedicinal substance allergy status; Z79.82 Long term (current) use of aspirin; Z79.899 Other long term (current) drug therapy
CPT/HCPCS: 96372; 99283; J1100; J1885